=== PATIENT | female | born 1970 | race American Indian/Alaskan Native ===

== ENCOUNTER 2016-12-06 20:02 | Emergency (ER) | payer BC, OTHER ==
[2016-12-06] MEDS ORDERED: methylPREDNISolone Sodium Succinate 125 MG/2 ML SDV IM ONE (20:37)
[2016-12-06] MEDS ORDERED: Cyclobenzaprine 10 MG Tab PO ONE (20:37)
--- NOTE | 2016-12-06 20:40 | EDM.PDOC ---
ED HPI LOWER BACK PAIN/INJURY - General Chief Complaint: Back Pain or Injury Stated Complaint: BACK PAINS, [id number] Time Seen by Provider: 12/06/16 20:39 Source of Information: Reports: Patient History Limitations: Reports: No limitations - History of Present Illness INITIAL COMMENTS - FREE TEXT/NARRATIVE: 46 yo white female c/o low back pain after bending over 2 hours ago. Pt. denies trauma. Pt. states pain shooting down left leg Symptom Onset Date: 12/06/16 Symptom Onset Time: 18:30 Timing/Duration: Reports: Hour(s): Location: Reports: radiating pain Quality: Reports: Ache, Burning Severity: moderate Place of Occurrence: home Context: Reports: bending Treatments TRANSPORTATION WORKER: Reports: NSAIDS - Related Data Allergies/ADRs: Allergies Allergy/AdvReac Type Severity Reaction Status Date / Time No Known Allergies Allergy Verified 06/07/16 19:51 Home Meds: Home Meds Simvastatin [Zocor] 20 mg PO BEDTIME 08/01/15 [History] Doxepin HCl [Doxepin] 10 mg PO QPM 06/07/16 [History] Multivitamin [Multivitamins] 1 each PO DAILY 06/07/16 [History] Past Medical History Psychiatric History: Reports: Anxiety Endocrine/Metabolic History: Reports: Diabetes, type II - Past Surgical History GI Surgical History: Reports: Appendectomy Female Surgical History: Reports: Hysterectomy Social & Family History - Tobacco Use Smoking Status *Q: Current Every Day Smoker Years of Tobacco use: 10 Packs/Tins Daily: 0.2 Used Tobacco, but Quit: No Second Hand Smoke Exposure: Yes - Alcohol Use Days Per Week of Alcohol Use: 0 - Recreational Drug Use Recreational Drug Use: No Drug Use in Last 12 Months: No - Living Situation & Occupation Living situation: Reports: single, with family Occupation: employed ED ROS GENERAL - Review of Systems Review Of Systems: See Below Constitutional: Reports: no symptoms HEENT: Reports: No symptoms Respiratory: Reports: no symptoms Cardiovascular: Reports: No symptoms Endocrine: Reports: no symptoms GI/Abdominal: Reports: No symptoms : Reports: no symptoms Musculoskeletal: Reports: back pain (low back) Skin: Reports: no symptoms Neurological: Reports: tingling (left lateral lower extremity) Psychiatric: Reports: No symptoms Hematologic/Lymphatic: Reports: no symptoms Immunologic: Reports: no symptoms ED EXAM,LOWER BACK PAIN/INJURY - Physical Exam Exam: See Below Exam Limited By: No limitations General Appearance: no apparent distress, obese Eye Exam: bilateral eye: EOMI, PERRL Throat/Mouth: Normal inspection Head: atraumatic Neck: normal inspection Respiratory/Chest: no respiratory distress Cardiovascular: normal peripheral pulses, regular rate, rhythm Extremities: normal inspection, normal range of motion Neurological: alert, normal mood/affect, normal dorsiflexion, CN II-XII intact, normal plantar flexion, oriented x 3 Psychiatric: normal affect Skin Exam: Warm Lymphatic: no adenopathy Course - Vital Signs Last Recorded V/S: Last Vital Signs Temp 36.2 C 12/06/16 20:25 Pulse 83 12/06/16 20:25 Resp 18 12/06/16 20:25 BP 132/76 12/06/16 20:25 Pulse Ox 97 12/06/16 20:25 - Orders/Labs/Meds Orders: Active Orders 24 hr Category Date Time Status Lumbar Spine wo Cont [CT] Urgent Exams 12/06/16 20:37 Taken URINALYSIS W/MICROSCOPIC [UA W/MICROSCOPIC] [URIN] Stat Lab 12/06/16 21:21 Uncollected Meds: Medications Discontinued Medications Generic Name Dose Route Start Last Admin Trade Name Freq PRN Reason Stop Dose Admin Cyclobenzaprine HCl 10 mg 12/06/16 20:37 12/06/16 21:27 Flexeril PO 12/06/16 20:38 10 mg ONETIME ONE Administration Methylprednisolone Sodium Succinate 125 mg 12/06/16 20:37 12/06/16 21:27 Solu-Medrol IM 12/06/16 20:38 125 mg ONETIME ONE Administration Departure - Departure Time of Disposition: 21:51 Disposition: Home, Self-Care 01 Condition: good Clinical Impression: Lumbar degenerative disc disease Instructions: Back Pain, Adult, [id number] Forms: ED Department Discharge Additional Instructions: Rest Try Moist Heat to area TID for 15 mins. Medication: [place] 5/325 take 1 every 4-6 hours # 30 Neurontin 300mg take 1 every 8 hours # 30 F/U w/ PCP for further evaluation - My Orders Last 24 Hours: My Active Orders 12/06/16 20:37 Lumbar Spine wo Cont [CT] Urgent 12/06/16 21:21 URINALYSIS W/MICROSCOPIC [UA W/MICROSCOPIC] [URIN] Stat - Assessment/Plan Last 24 Hours: My Active Orders 12/06/16 20:37 Lumbar Spine wo Cont [CT] Urgent 12/06/16 21:21 URINALYSIS W/MICROSCOPIC [UA W/MICROSCOPIC] [URIN] Stat
[2016-12-06 20:46] VITALS: BP 132/76
[2016-12-06] MEDS ORDERED: Acetaminophen/HYDROcodone 325-10 MG Tab PO ONE (21:55)
[2016-12-06] MEDS ORDERED: Acetaminophen/HYDROcodone 325-10 MG Tab ONE (21:55)
[2016-12-06] MEDS ORDERED: Gabapentin 300 MG Cap PO ONE (22:01)
[2016-12-06] MEDS ORDERED: Gabapentin 300 MG Cap ONE (22:01)
== END 2016-12-06 22:12 | disposition home or self-care (01) ==
LOC: DL.ED 20:02
DX: M51.36 Other intervertebral disc degeneration, lumbar region (principal); F17.210 Nicotine dependence, cigarettes, uncomplicated; E11.9 Type 2 diabetes mellitus without complications; Z79.899 Other long term (current) drug therapy; Z90.710 Acquired absence of both cervix and uterus
CPT/HCPCS: 72131; 96372; 99283; A9270; J2930

== ENCOUNTER 2017-07-15 18:49 | Emergency (ER) | payer OTHER ==
[2017-07-15 19:08] VITALS: BP 114/61
[2017-07-15] MEDS ORDERED: Acetaminophen 325 MG Tab PO ONE (19:19)
--- NOTE | 2017-07-15 19:24 | EDM.PDOC ---
ED HPI GENERAL MEDICAL PROBLEM - General Chief Complaint: Chest Pain Stated Complaint: GENERAL,[facility] Time Seen by Provider: 07/15/17 19:00 Source of Information: Reports: Patient History Limitations: Reports: No Limitations - History of Present Illness INITIAL COMMENTS - FREE TEXT/NARRATIVE: left chest pain started after moving heavy desks. Pain started left shoulder, clavicle and radiating to upper left. Pain worse with movment of left arm. Pain better with arm elevated. Onset: Today Treatments ASSISTANT FOOD SERVICE MANAGER: Reports: IV/IO, Nitroglycerin, Other (see below) Other Treatments ASSISTANT FOOD SERVICE MANAGER: Morphine Left Shoulder Pain Score (Numeric/FACES): 2 - Related Data Allergies Allergy/AdvReac Type Severity Reaction Status Date / Time No Known Allergies Allergy Verified 07/15/17 19:08 Home Meds: Home Meds Simvastatin [Zocor] 20 mg PO BEDTIME 08/01/15 [History] Doxepin HCl [Doxepin] 10 mg PO QPM 06/07/16 [History] Multivitamin [Multivitamins] 1 each PO DAILY 06/07/16 [History] sitaGLIPtin Phosphate [Januvia] 25 mg PO DAILY 12/06/16 [History] Aspirin 325 mg PO DAILY 07/15/17 [History] Past Medical History Psychiatric History: Reports: Anxiety Endocrine/Metabolic History: Reports: Diabetes, Type II - Past Surgical History GI Surgical History: Reports: Appendectomy Female Surgical History: Reports: Hysterectomy Social & Family History - Family History Family Medical History: Noncontributory - Tobacco Use Smoking Status *Q: Current Every Day Smoker Years of Tobacco use: 2 Packs/Tins Daily: 5 Used Tobacco, but Quit: No Second Hand Smoke Exposure: Yes - Caffeine Use Caffeine Use: Reports: Coffee, Tea - Alcohol Use Days Per Week of Alcohol Use: 0 - Recreational Drug Use Recreational Drug Use: No Drug Use in Last 12 Months: No - Living Situation & Occupation Living situation: Reports: Single, with Family Occupation: Employed ED ROS GENERAL - Review of Systems Review Of Systems: ROS reveals no pertinent complaints other than HPI. ED EXAM, GENERAL - Physical Exam Exam: See Below Exam Limited By: No Limitations General Appearance: Alert, No Apparent Distress, Anxious (mild) Eye Exam: Bilateral Eye: EOMI Ears: Normal External Exam, Normal Canal, Normal TMs Nose: Normal Inspection Throat/Mouth: Normal Inspection Head: Atraumatic, Normocephalic, Sinus Tenderness Respiratory/Chest: No Respiratory Distress, Lungs Clear, Normal Breath Sounds Cardiovascular: Normal Peripheral Pulses, Regular Rate, Rhythm, No Murmur GI/Abdominal: Normal Bowel Sounds, Soft, Non-Tender Back Exam: Normal Inspection Extremities: Arm Pain (left shoulder internal external rotation tender mid to lateral clavicle) Neurological: Alert, Oriented, Normal Cognition Psychiatric: Normal Affect Skin Exam: Warm, Dry, Intact, Normal Color Course - Vital Signs Last Recorded V/S: Last Vital Signs Temp 97.1 F 07/15/17 18:52 Pulse 80 07/15/17 18:52 Resp 20 07/15/17 18:52 BP 114/61 07/15/17 18:52 Pulse Ox 100 07/15/17 18:52 - Orders/Labs/Meds Orders: Active Orders 24 hr Category Date Time Status EKG Documentation Completion [RC] URGENT Care 07/15/17 19:20 Active Labs: Laboratory Tests 07/15/17 07/15/17 Range/Units 19:35 19:35 WBC 13.1 H (5.0-10.0) 10^3/uL RBC 5.31 (4.2-5.4) 10^6/uL Hgb 13.7 (12.0-16.0) g/dL Hct 42.0 (37.0-47.0) % MCV 79.1 L (80-100) fL MCH 25.8 L (27.0-34.0) pg MCHC 32.6 L (33.0-35.0) g/dL Plt Count 363 (150-450) 10^3/uL Neut % (Auto) 67.6 (42.2-75.2) % Lymph % (Auto) 25.3 (20.5-50.1) % [place] % (Auto) 5.5 (2-8) % Eos % (Auto) 1.1 (1.0-3.0) % Baso % (Auto) 0.5 (0.0-1.0) % Sodium 137 (135-145) mmol/L Potassium 3.9 (3.6-5.0) mmol/L Chloride 105 (101-111) mmol/L Carbon Dioxide 23.0 (21.0-31.0) mmol/L Anion Gap 12.9 BUN 17 (7-18) mg/dL Creatinine 0.7 (0.6-1.3) mg/dL Est Cr Clr Drug Dosing 95.01 mL/min Estimated GFR (MDRD) > 60 BUN/Creatinine Ratio 24.28 Glucose 122 H (74-105) mg/dL Calcium 9.0 (8.4-10.2) mg/dl Total Bilirubin 0.3 (0.2-1.0) mg/dL AST 37 (10-42) IU/L ALT 46 (10-60) IU/L Alkaline Phosphatase 101 (42-121) IU/L Troponin I < 0.02 (0.00-0.02) ng/ml Total Protein 7.2 (6.7-8.2) g/dl Albumin 3.5 (3.2-5.5) g/dl Globulin 3.7 Albumin/Globulin Ratio 0.95 Amylase 52 (28-100) U/L Lipase 37 (22-51) U/L Meds: Medications Discontinued Medications Generic Name Dose Route Start Last Admin Trade Name Freq PRN Reason Stop Dose Admin Acetaminophen 650 mg 07/15/17 19:19 07/15/17 19:36 Tylenol PO 07/15/17 19:20 650 mg NOW ONE Administration - Radiology Interpretation Free Text/Narrative:: CXR negative Departure - Departure Time of Disposition: 20:37 Disposition: Home, Self-Care 01 Condition: Good Clinical Impression: Muscle strain of anterior chest wall Instructions: Nonspecific Chest Pain, [id number] Referrals: Claudia Westbrook, LUNG PULLER [Primary Care Provider] - Forms: ED Department Discharge Additional Instructions: ibuprofen 600mg every 6 hours as needed for discomfort, take with food alternate ice and heat to left shoulder no lifting 24 hours Follow up next week if continued discomfort urgent follow up if worsening pain difficulty breathing nausea, vomiting - My Orders Last 24 Hours: My Active Orders 07/15/17 19:20 EKG Documentation Completion [RC] URGENT - Assessment/Plan Last 24 Hours: My Active Orders 07/15/17 19:20 EKG Documentation Completion [RC] URGENT
[2017-07-15 20:04] LABS: CHLORIDE,CL 105 mmol/L (101-111); SODIUM,NA 137 mmol/L (135-145)
--- NOTE | 2017-07-18 11:22 | EKG ---
07/15/2017 - [facility] - This 12-lead EKG shows normal sinus rhythm with borderline left axis deviation. Heart rate of 75, no significant ST elevation or ST depression noted on this 12- lead EKG. Nonspecific T-wave changes noted on lead aVR. [facility] /[id number]
== END 2017-07-15 20:48 | disposition home or self-care (01) ==
LOC: DL.ED 18:49
DX: S29.011A Strain of muscle and tendon of front wall of thorax, initial encounter (principal); E11.9 Type 2 diabetes mellitus without complications; F17.210 Nicotine dependence, cigarettes, uncomplicated; Z79.899 Other long term (current) drug therapy; Z79.82 Long term (current) use of aspirin; Z90.710 Acquired absence of both cervix and uterus; X50.9XXA Other and unspecified overexertion or strenuous movements or postures, initial encounter
CPT/HCPCS: 36415; 71010; 80053; 82150; 83690; 84484; 85025; 93005; 99285; A9270

== ENCOUNTER 2018-02-21 14:11 | Emergency (ER) | payer OTHER ==
[2018-02-21 14:20] VITALS: BP 153/122
[2018-02-21] MEDS ORDERED: Ketorolac 30 MG/ML SDV IM ONE (15:19)
--- NOTE | 2018-02-21 15:57 | EDM.PDOC ---
ED HPI GENERAL MEDICAL PROBLEM - General Chief Complaint: Headache Stated Complaint: [id number] MIGRAINE FOR DAYS Time Seen by Provider: 02/21/18 14:30 Source of Information: Reports: Patient, RN, RN Notes Reviewed History Limitations: Reports: No Limitations - History of Present Illness INITIAL COMMENTS - FREE TEXT/NARRATIVE: Patient presents to the ER with c/o severe headache since Thursday. Patient states the headache was dull until Thursday, then became more severe. The headache has progressively gotten worse over the weekend. Patient states she has used Tylenol, ibuprofen, excedrin. She states she can feel muscle tension in her shoulders and neck as well. Patient denies chronic history of headaches, and states she has never had a head CT for the headaches. Patient denies fever or chills, N/V/D, chest pains, SOB. Patient states she has tried to stay away from light and noise as they aggravated the headache. Pt does admit to some blurred vision at times. Duration: Constant, Getting Worse Location: Reports: Head Quality: Reports: Ache, Pressure, Throbbing Severity: Severe Improves with: Reports: None Worsens with: Reports: None Bilateral Eye Pain Score (Numeric/FACES): 10 - Related Data Allergies Allergy/AdvReac Type Severity Reaction Status Date / Time metformin Allergy Cannot Verified 02/21/18 14:28 Remember Home Meds: Home Meds Simvastatin [Zocor] 20 mg PO BEDTIME 08/01/15 [History] Doxepin HCl [Doxepin] 10 mg PO QPM 06/07/16 [History] Multivitamin [Multivitamins] 1 each PO DAILY 06/07/16 [History] sitaGLIPtin Phosphate [Januvia] 25 mg PO DAILY 12/06/16 [History] Aspirin 325 mg PO DAILY 07/15/17 [History] Past Medical History HEENT History: Reports: Impaired Vision Cardiovascular History: Reports: High Cholesterol, Hypertension Psychiatric History: Reports: Anxiety Endocrine/Metabolic History: Reports: Diabetes, Type II - Past Surgical History GI Surgical History: Reports: Appendectomy Female Surgical History: Reports: Section, Hysterectomy Social & Family History - Family History Family Medical History: Noncontributory - Tobacco Use Smoking Status *Q: Current Every Day Smoker Years of Tobacco use: 2 Packs/Tins Daily: 0.4 - Caffeine Use Caffeine Use: Reports: Coffee, Tea - Recreational Drug Use Recreational Drug Use: No - Living Situation & Occupation Living situation: Reports: Single, with Family Occupation: Employed ED ROS GENERAL - Review of Systems Review Of Systems: ROS reveals no pertinent complaints other than HPI. - Physical Exam Exam: See Below Exam Limited By: No Limitations General Appearance: Alert, WD/WN, Moderate Distress Eye Exam: Bilateral Eye: EOMI, Normal Inspection, PERRL (3 brisk) Ears: Normal External Exam, Hearing Grossly Normal Nose: Normal Inspection Throat/Mouth: Normal Inspection, Normal Voice, No Airway Compromise Head Exam: Atraumatic, Normocephalic Neck: Normal Inspection, Supple, Non-Tender, Full Range of Motion Respiratory/Chest: No Respiratory Distress, Lungs Clear, Normal Breath Sounds, No Accessory Muscle Use, Chest Non-Tender Cardiovascular: Normal Peripheral Pulses, Regular Rate, Rhythm, No Edema, No Gallop, No JVD, No Murmur, No Rub GI/Abdominal: Normal Bowel Sounds, Soft, Non-Tender, No Organomegaly, No Distention, No Abnormal Bruit, No Mass (Female) Exam: Deferred Rectal (Female) Exam: Deferred Neuro Exam (Abbreviated): Alert, Oriented, CN II-XII Intact, Normal Cognition, Normal Gait, Normal Reflexes, No Motor/Sensory Deficits Back Exam: Normal Inspection, Full Range of Motion, NT Extremities: Normal Inspection, Normal Range of Motion, Non-Tender, No Pedal Edema, Normal Capillary Refill Psychiatric: Normal Affect, Normal Mood Skin Exam: Warm, Dry, Intact, Normal Color, No Rash Course - Vital Signs Last Recorded V/S: Last Vital Signs Temp 98.2 F 02/21/18 14:19 Pulse 73 02/21/18 14:19 Resp 19 02/21/18 14:19 BP 153/122 H 02/21/18 14:19 Pulse Ox 97 02/21/18 14:19 - Orders/Labs/Meds Orders: Active Orders 24 hr Category Date Time Status Head wo Cont [CT] Urgent Exams 02/21/18 15:22 Taken Meds: Medications Discontinued Medications Generic Name Dose Route Start Last Admin Trade Name Freq PRN Reason Stop Dose Admin Ketorolac Tromethamine 60 mg 02/21/18 15:19 02/21/18 15:32 Toradol IM 02/21/18 15:20 60 mg ONETIME ONE Administration Orphenadrine Citrate 60 mg 02/21/18 15:30 02/21/18 15:33 Norflex IM 60 mg Q12H MINDA Administration - Radiology Interpretation Free Text/Narrative:: Head CT: IMPRESSION: No acute intracranial process. Thank you for allowing us to participate in the care of your patient. Dictated and Authenticated by: Prakash Osorio MD 02/21/2018 3:54 PM Central Time ([place] & [place]) See Rad report Departure - Departure Time of Disposition: 16:16 Disposition: Home, Self-Care 01 Condition: Fair Clinical Impression: Tension-type headache - Discharge Information Instructions: Tension Headache, Adult, [id number] Referrals: Claudia Westbrook COLLATERAL CLERK [Primary Care Provider] - Forms: ED Department Discharge Additional Instructions: May use Tylenol and ibuprofen as directed for pain RX: Norflex Drink plenty of water Follow up with your primary care facility this week if no improvement - My Orders Last 24 Hours: My Active Orders 02/21/18 15:22 Head wo Cont [CT] Urgent - Assessment/Plan Last 24 Hours: My Active Orders 02/21/18 15:22 Head wo Cont [CT] Urgent
== END 2018-02-21 16:37 | disposition home or self-care (01) ==
LOC: DL.ED 14:11
DX: G44.209 Tension-type headache, unspecified, not intractable (principal); E78.00 Pure hypercholesterolemia, unspecified; I10 Essential (primary) hypertension; E11.9 Type 2 diabetes mellitus without complications; F17.210 Nicotine dependence, cigarettes, uncomplicated; Z88.8 Allergy status to other drugs, medicaments and biological substances; Z79.899 Other long term (current) drug therapy; Z79.82 Long term (current) use of aspirin
CPT/HCPCS: 70450; 96372; 99283; J1885; J2360

== ENCOUNTER 2019-01-12 17:49 | Emergency (ER) | payer BC, OTHER ==
[2019-01-12 18:08] VITALS: BP 113/61
[2019-01-12] MEDS ORDERED: Lidocaine 1% 30 ML SDV INJECT ONE (18:15)
[2019-01-12] MEDS ORDERED: Lidocaine 1% 30 ML SDV ONE (18:16)
--- NOTE | 2019-01-12 19:13 | EDM.PDOC ---
ED HPI GENERAL MEDICAL PROBLEM - General Chief Complaint: Skin Complaint Stated Complaint: BOIL ON LOWER PART OF STOMACH [id number] Time Seen by Provider: 01/12/19 18:00 Source of Information: Reports: Patient History Limitations: Reports: No Limitations - History of Present Illness INITIAL COMMENTS - FREE TEXT/NARRATIVE: Patient is a 48 year old female with significant history of diabetes presenting with an abdominal abscess. Patient reports that it has slowly gotten bigger and more painful yesterday and today. It is located on the lower right side of her abdomen and is rubbing on her cloths which has irritated it. She denies associated symptoms of fever, chills, headache, lightheadedness, chest pain, shortness of breath, diaphoresis, abdominal pain, or changes in bowel and bladder habits. Right Lower Abdominal Pain Score (Numeric/FACES): 7 - Related Data Allergies Allergy/AdvReac Type Severity Reaction Status Date / Time metformin Allergy Cannot Verified 01/12/19 18:11 Remember Home Meds: Home Meds Simvastatin [Zocor] 20 mg PO BEDTIME 08/01/15 [History] Doxepin HCl [Doxepin] 10 mg PO QPM 06/07/16 [History] Multivitamin [Multivitamins] 1 each PO DAILY 06/07/16 [History] sitaGLIPtin Phosphate [Januvia] 25 mg PO DAILY 12/06/16 [History] Aspirin 325 mg PO DAILY 07/15/17 [History] Past Medical History HEENT History: Reports: Impaired Vision Cardiovascular History: Reports: High Cholesterol, Hypertension 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: Psychiatric History: Reports: Anxiety Endocrine/Metabolic History: Reports: Diabetes, Type II - Past Surgical History GI Surgical History: Reports: Appendectomy Female Surgical History: Reports: Section, Hysterectomy Social & Family History - Family History Family Medical History: Noncontributory - Tobacco Use Smoking Status *Q: Current Every Day Smoker Years of Tobacco use: 10 Packs/Tins Daily: 0.2 - Caffeine Use Caffeine Use: Reports: Coffee, Tea - Recreational Drug Use Recreational Drug Use: No - Living Situation & Occupation Living situation: Reports: Single, with Family Occupation: Employed ED ROS GENERAL - Review of Systems Review Of Systems: ROS reveals no pertinent complaints other than HPI. ED EXAM, SKIN/RASH Exam: See Below Exam Limited By: No Limitations General Appearance: Alert, No Apparent Distress, Obese Neck: Normal Inspection, Supple Respiratory/Chest: Lungs Clear Cardiovascular: Regular Rate, Rhythm Skin: Other (RLQ subcutaneous purple, erythematous mass with surrounding erythema and edema. ) ED SKIN PROCEDURES - I&D Site: RLQ subcutaneous abscess Skin Prep: Providone-Iodine (Betadine) Local Anesthesia: Lidocaine: 1% Plain Local Anesthetic Volume: 5cc Area Incised With: 11 Blade Drainage: Purulent, Bloody Probed to Break Up Loculations: Yes Packed With: 1/4 in. Iodoform Sterile Dressinx4(s) Complications: No Progress/Comments: Incision was cleaned and packed. A gauze dressing was applied and dressing tape was used to secure edges. Course - Vital Signs Last Recorded V/S: Last Vital Signs Temp 36.6 C 01/12/19 17:59 Pulse 80 01/12/19 17:59 Resp 18 01/12/19 17:59 BP 113/61 01/12/19 17:59 Pulse Ox 98 01/12/19 17:59 - Orders/Labs/Meds Orders: Active Orders 24 hr Category Date Time Status CULTURE WOUND [RM] Stat Lab 01/12/19 18:40 Received Meds: Medications Discontinued Medications Generic Name Dose Route Start Last Admin Trade Name Court PRN Reason Stop Dose Admin Lidocaine HCl 30 ml 01/12/19 18:15 01/12/19 18:20 Xylocaine-Mpf 1% INJECT 01/12/19 18:16 30 ml ONETIME ONE Administration Lidocaine HCl Confirm 01/12/19 18:16 Xylocaine-Mpf 1% Administered 01/12/19 18:17 Dose 30 ml .ROUTE .STK-MED ONE Departure - Departure Time of Disposition: 19:14 Disposition: Home, Self-Care 01 Condition: Good Clinical Impression: Abscess - Discharge Information *PRESCRIPTION DRUG MONITORING PROGRAM REVIEWED*: No *COPY OF PRESCRIPTION DRUG MONITORING REPORT IN PATIENT AMADOU: No Instructions: Skin Abscess, Skin Abscess, [id number], Incision and Drainage, Care After Referrals: Claudia Westbrook NP [Primary Care Provider] - Forms: ED Department Discharge Additional Instructions: Patient was advised to follow-up in clinic with Claudia Westbrook at [facility] on Thursday for cleaning and dressing change of the wound. Prescription with Clindamycin 300mg PO QID for 10 days, and Bactroban PO BID for 5 days was provided. - Problem List Review Problem List Initiated/Reviewed/Updated: Yes - My Orders Last 24 Hours: My Active Orders 01/12/19 18:40 CULTURE WOUND [RM] Stat - Assessment/Plan Last 24 Hours: My Active Orders 01/12/19 18:40 CULTURE WOUND [RM] Stat Assessment:: Patient is a 48 year old female presenting with a subcutaneous right lower quadrant abdominal mass. Incision and drainage was done and wound was packed and dressing was applied. Plan: 1. Abscess was incised and debrided. 2. Wound cultures were obtained. 3. Treatment with Clindamycin and Bactroban was initiated. 4. Patient was advised to follow-up in clinic with Claudia Westbrook for check of wound healing and repacking. Patient was seen today by myself and Dr. Valdez. Assessment and plan are under advisement of Dr. Valdez. -Tiffanie Andres, MS-III
== END 2019-01-12 19:28 | disposition home or self-care (01) ==
LOC: DL.ED 17:49
DX: L02.211 Cutaneous abscess of abdominal wall (principal); E11.9 Type 2 diabetes mellitus without complications; I10 Essential (primary) hypertension; E78.00 Pure hypercholesterolemia, unspecified; F17.210 Nicotine dependence, cigarettes, uncomplicated; Z79.82 Long term (current) use of aspirin; Z79.899 Other long term (current) drug therapy; Z88.8 Allergy status to other drugs, medicaments and biological substances
CPT/HCPCS: 10061; 87070; 99283; J2001; 10060

== ENCOUNTER 2022-12-31 16:28 | Emergency (ER) | payer OTHER ==
[2022-12-31] MEDS ORDERED: Sodium Chloride 0.9% 1,000 ML IV ONE (16:40)
[2022-12-31] MEDS ORDERED: diphenhydrAMINE 50 MG/ML SDV IVPUSH ONE (16:40)
[2022-12-31] MEDS ORDERED: Ketorolac 30 MG/ML SDV IVPUSH ONE (16:40)
[2022-12-31] MEDS ORDERED: Metoclopramide 10 MG/2 ML SDV IVPUSH ONE (16:40)
[2022-12-31] MEDS ORDERED: Sodium Chloride 0.9% 10 ML Syringe FLUSH PRN (16:40)
[2022-12-31 17:04] VITALS: BP 106/64; PULSE 74
== END 2022-12-31 17:52 | disposition home or self-care (01) ==
LOC: DL.ED 16:28
DX: G44.209 Tension-type headache, unspecified, not intractable (principal); E78.00 Pure hypercholesterolemia, unspecified; I10 Essential (primary) hypertension; E11.9 Type 2 diabetes mellitus without complications; Z79.82 Long term (current) use of aspirin; Z88.8 Allergy status to other drugs, medicaments and biological substances; Z79.899 Other long term (current) drug therapy
CPT/HCPCS: 96361; 96374; 96375; 99283; J1200; J1885; J2765; J3490; J7030

== ENCOUNTER 2024-01-04 20:54 | Emergency (ER) | payer BC, OTHER ==
[2024-01-04 21:32] LABS: BASOPHILS PERCENT AUTO 0.4 % (0.0-1.0); EOSINOPHILS PERCENT AUTO 1.7 % (1.0-3.0); HEMATOCRIT 40.1 % (37.0-47.0); HEMOGLOBIN 12.7 g/dL (12.0-16.0); LYMPHOCYTES PERCENT AUTO 32.2 % (20.5-50.1); MEAN CORPUSCULAR HGB CONC 31.7 g/dL (33.0-35.0); MONOCYTES PERCENT AUTO 5.7 % (2-8); PLATELET COUNT,PLT 387 10^3/uL (150-450); RED BLOOD CELL COUNT 4.89 10^6/uL (4.2-5.4); WHITE BLOOD CELL COUNT,WBC 9.4 10^3/uL (5.0-10.0)
[2024-01-04 21:43] LABS: A/G RATIO 0.89; ALANINE AMINOTRANSFERASE,ALT 31 U/L (14-59); ALBUMIN 3.2 g/dL (3.4-5.0); ALKALINE PHOSPHATASE 134 U/L (46-116); ANION GAP 12.7 mEq/L (7-13); ASPARTATE AMNIOTRANSFERASE,AST 11 U/L (15-37); BILIRUBIN TOTAL 0.2 mg/dL (0.2-1.0); BLOOD UREA NITROGEN,BUN 19 mg/dL (7-18); BUN/CREATININE RATIO 24.7 (No establ ref range); CARBON DIOXIDE,CO2 29 mmol/L (21-32); CHLORIDE,CL 107 mmol/L (98-107); CREATININE 0.77 mg/dL (0.55-1.02); ESTIMATED GFR 93 mL/min (>=60); GLUCOSE RANDOM 128 mg/dL (70-99); POTASSIUM,K 3.7 mmol/L (3.5-5.1); PROTEIN TOTAL,TP 6.8 g/dL (6.4-8.2); SODIUM,NA 145 mmol/L (136-145)
[2024-01-04 22:06] VITALS: BP 130/72; PULSE 72
== END 2024-01-04 23:24 | disposition home or self-care (01) ==
LOC: DL.ED 20:54
DX: S29.011A Strain of muscle and tendon of front wall of thorax, initial encounter (principal); I10 Essential (primary) hypertension; E78.00 Pure hypercholesterolemia, unspecified; E11.9 Type 2 diabetes mellitus without complications; Z79.82 Long term (current) use of aspirin; Z88.8 Allergy status to other drugs, medicaments and biological substances; Z79.899 Other long term (current) drug therapy; Z86.16 Personal history of COVID-19; Z79.4 Long term (current) use of insulin; Z90.710 Acquired absence of both cervix and uterus; X50.0XXA Overexertion from strenuous movement or load, initial encounter
CPT/HCPCS: 36415; 71046; 80053; 84484; 85025; 85379; 93005; 99284; 99285

== ENCOUNTER 2025-06-12 09:33 | Emergency (ER) | payer BC, OTHER ==
[2025-06-12 11:18] VITALS: BP 129/79; PULSE 78
== END 2025-06-12 11:11 | disposition home or self-care (01) ==
LOC: DL.ED 09:33
DX: S63.502A Unspecified sprain of left wrist, initial encounter (principal); I10 Essential (primary) hypertension; E78.00 Pure hypercholesterolemia, unspecified; E11.9 Type 2 diabetes mellitus without complications; Z86.16 Personal history of COVID-19; Z79.899 Other long term (current) drug therapy; Z79.82 Long term (current) use of aspirin; Z88.8 Allergy status to other drugs, medicaments and biological substances; Z90.710 Acquired absence of both cervix and uterus; Z90.49 Acquired absence of other specified parts of digestive tract; Z87.891 Personal history of nicotine dependence; X50.1XXA Overexertion from prolonged static or awkward postures, initial encounter
CPT/HCPCS: 29125; 73110-LT; 99282; 99283-25